=== PATIENT | male | born 1945 | race Caucasian/White ===

== ENCOUNTER 2017-06-28 12:24 | Emergency (ER) | payer OTHER ==
[~2017-06-28] VITALS: Ht 172.7 cm; Wt 96.3 kg
[~2017-06-28 12:24] MED LIST: BUME1TAB PO; CARV6.252 PO; LISI-357 PO; SPIR25TA PO; SYNT112T PO
[2017-06-28 12:28] VITALS: BP 103/67; PULSE 97; RESP 18; TEMP 97.9; O2SAT 98
[2017-06-28] MEDS ORDERED: AMIO200T PO (14:35)
[2017-06-28] MEDS ORDERED: ISOS10TA PO (14:36)
[2017-06-28] MEDS ORDERED: BUME2TAB PO (14:36)
[2017-06-28] MEDS ORDERED: HYDR-3799 PO (14:36)
[2017-06-28] MEDS ORDERED: SPIR25TA PO (14:36)
[2017-06-28] MEDS ORDERED: LEVO150T7 PO (14:36)
[2017-06-28] MEDS ORDERED: EPLE25TA PO (14:36)
[2017-06-28] MEDS ORDERED: INDO25CA PO (14:43)
[2017-06-28] MEDS ORDERED: FAMO1TAB73 PO (14:43)
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
[2017-06-28] MEDS ORDERED: NORC5TAB PO (14:45)
== END 2017-06-28 15:34 | disposition home or self-care (01) ==
LOC: PHED 12:24
DX: M25.532 Pain in left wrist (principal); M10.9 Gout, unspecified; I11.0 Hypertensive heart disease with heart failure; I50.9 Heart failure, unspecified; K21.9 Gastro-esophageal reflux disease without esophagitis; E78.00 Pure hypercholesterolemia, unspecified; E07.9 Disorder of thyroid, unspecified; Z79.899 Other long term (current) drug therapy
CPT/HCPCS: 99283